=== PATIENT | female | born 1975 | race Caucasian/White ===

== ENCOUNTER 2017-09-11 13:58 | Emergency (ER) | payer MEDICAID ==
[2017-09-11] MEDS: KETOROLAC 60 MG INJ IM (17:15)
== END 2017-09-11 17:28 | disposition home or self-care (01) ==
LOC: FTE 13:58
DX: M54.2 Cervicalgia (principal)
CPT/HCPCS: 72050; 96372; 99284-25

== ENCOUNTER 2017-10-15 05:24 | Emergency (ER) | payer MEDICAID ==
[2017-10-15 07:27] LABS: ADD MAN DIFF? NO
[2017-10-15 07:30] LABS: BASOPHIL # 0.1 10^3/ul (0.0-0.1); EOSINOPHILS # 0.1 10^3/ul (0.0-0.5); EOSINOPHILS % 0.9 % (0.0-7.0); HEMATOCRIT 37.2 % (37.0-47.0); HEMOGLOBIN 12.4 g/dl (12.0-16.0); LYMPHOCYTES # 2.6 10^3/ul (0.8-2.9); MEAN CORPUSCULAR HEMOGLOBIN 28.4 pg (29.0-33.0); MEAN CORPUSCULAR HGB CONC 33.3 g/dl (32.0-37.0); MEAN CORPUSCULAR VOLUME 85.3 fl (82.0-101.0); MEAN PLATELET VOLUME 10.2 fl (7.4-10.4); MONOCYTE # 0.4 10^3/ul (0.3-0.9); MONOCYTES % 6.6 % (0.0-11.0); NEUTROPHIL # 3.5 10^3/ul (1.6-7.5); NEUTROPHILS % 52.2 % (39.0-77.0); PLATELET COUNT 293 10^3/UL (140-415); RED BLOOD COUNT 4.36 10^6/ul (4.20-5.40); RED CELL DISTRIBUTION WIDTH 18.2 % (11.5-14.5)
[2017-10-15 07:30] LABS: WHITE BLOOD COUNT 6.7 10^3/ul (4.8-10.8)
== END 2017-10-15 09:07 | disposition home or self-care (01) ==
LOC: FTE 05:24
DX: D25.9 Leiomyoma of uterus, unspecified (principal)
CPT/HCPCS: 36415; 76856; 85025; 99284-25

== ENCOUNTER 2017-12-22 08:58 | Emergency (ER) | payer MEDICAID ==
[2017-12-22] MEDS: predniSONE 20 MG TAB PO (10:40)
[2017-12-22] MEDS: IBUPROFEN 200 MG TAB PO (10:40)
== END 2017-12-22 12:32 | disposition home or self-care (01) ==
LOC: FTE 12:32
DX: B60 Other protozoal diseases, not elsewhere classified (principal); L04.0 Acute lymphadenitis of face, head and neck
CPT/HCPCS: 99283; J7512